=== PATIENT | female | born 1935 | race Caucasian/White ===

== ENCOUNTER → 2017-05-12 | Outpatient (CLI) | payer MEDICARE ==
[~2017-05-12] MED LIST: /PANT40TA PO; ASPI81TAEC PO; ATEN50TA2 PO; ATOR1TAB21 PO; CARA1TAB2 PO; FERR32TA PO; FOLI1TAB4 PO; FOLI1TAB86 PO; HALO0.5H PO; LISI-538 PO; MULTTAB4 PO; SENN1TAB2 PO; THIA100TA PO; TYLE325T5 PO; VITA-121 PO; VITA100T2 PO; VITA500T53 PO
== END ==
LOC: M CLY 15:13
PROVIDERS: ATTEND Family Medicine
DX: M25.511 Pain in right shoulder (principal); Z53.8 Procedure and treatment not carried out for other reasons

== ENCOUNTER 2017-05-14 12:42 | Inpatient (IN) | payer MEDICARE ==
[~2017-05-14] VITALS: Ht 152.4 cm; Wt 60.7 kg
[~2017-05-14 12:42] MED LIST changes: -ASPI81TAEC PO; -ATOR1TAB21 PO; -FERR32TA PO; -FOLI1TAB4 PO; -HALO0.5H PO; -LISI-538 PO; -SENN1TAB2 PO; -THIA100TA PO; -VITA-121 PO; -VITA500T53 PO
[2017-05-14] MEDS: NS 1,000 ML IV SCH (14:33)
[2017-05-14 14:44] LABS: BASO # 0.1 K/mm3 (0.0-0.2); BASO % 0.5 % (0.0-1.0); EOS # 0.1 K/mm3 (0.0-0.50); EOS % 0.6 % (0.0-3.0); LARGE UNSTAINED CELL # 0.1 K/mm3 (0.0-0.4); LARGE UNSTAINED CELL % 0.9 % (0.0-4.0); LYMPH # 1.3 K/mm3 (1.5-4.5); LYMPH % 10.5 % (24.0-44.0); MEAN CORPUSCULAR HEMOGLOBIN 29.5 pg (27.0-33.0); MEAN CORPUSCULAR HGB CONC 33.1 g/dl (32.0-36.5); MEAN CORPUSCULAR VOLUME 89.2 fl (80.0-96.0); MONO # 0.4 K/mm3 (0.0-0.8); MONO % 3.2 % (0.0-5.0); NEUTROPHILS # 10.4 K/mm3 (1.8-7.7); NEUTROPHILS % 84.2 % (36.0-66.0); PLATELET COUNT, AUTOMATED 345 k/mm3 (150-450); RED CELL DISTRIBUTION WIDTH 18.3 % (11.5-14.5); WHITE BLOOD COUNT 12.3 K/mm3 (4.0-10.0)
--- NOTE | 2017-05-14 14:52 | REP ---
CT cervical spine without contrast HISTORY: Trauma COMPARISON: None There is no acute fracture or subluxation. Disc bulges are present at the C2-3 and C3-4 levels. Disc bulges with associated osteophyte formation are present at the C4-5 and C5-6 levels. There is minimal narrowing of the spinal canal. Uncinate process and/or facet hypertrophy are present at the C2-3 through C7-T1 levels. These findings produce minimal to moderate narrowing of the neural foramina. The C3-4 through C5-6 intervertebral discs are decreased in height consistent with disc degeneration. IMPRESSION: 1. There is no acute fracture or subluxation. 2. There is cervical spondylosis at the C2-3 through C7-T1 levels. Signed by Sandeep Means MD 05/14/2017 01:37 P
--- NOTE | 2017-05-14 14:52 | REP ---
CT Head without contrast HISTORY: Trauma COMPARISON: MR 11/13/2003 Areas of decreased attenuation are present in the left basal ganglia. These represent old lacunar infarctions. Areas of decreased attenuation are present in the periventricular white matter. This represents small-vessel ischemic disease. Small areas of decreased attenuation are present in the inferior frontal lobes. This represents encephalomalacia. There is no intraparenchymal hemorrhage, acute infarct, mass or midline shift. The ventricular system and cortical sulci as well as subarachnoid space in the posterior fossa are dilated consistent with mild volume loss. There is no extra cerebral collection. There is no fracture. The visualized sinuses are clear. IMPRESSION: 1. Old left basal ganglia lacunar infarctions. 2. Small vessel ischemic disease. 3. Bilateral frontal lobe encephalomalacia. 4. Mild volume loss. 3. Signed by Sandeep Means MD 05/14/2017 01:30 P
--- NOTE | 2017-05-14 14:54 | REP ---
Clinical: Altered mental status . Comparison: None . Findings: The mediastinum and cardiac silhouette are stable and within normal limits for portable technique. The lung cristobal are clear without acute consolidation, effusion, or pneumothorax. Skeletal structures are intact. Impression: No acute cardiopulmonary process appreciated. Signed by German Mantilla MD 05/14/2017 02:35 P
[2017-05-14 14:59] LABS: ALBUMIN 3.4 GM/DL (3.2-5.2); ALBUMIN/GLOBULIN RATIO 0.92 (1.00-1.93); BILIRUBIN,DIRECT 0.2 MG/DL (0.0-0.2); CALCIUM LEVEL 8.8 MG/DL (8.8-10.2); CREATININE FOR GFR 1.35 MG/DL (0.55-1.02); GLOMERULAR FILTRATION RATE 40.3 (>39); POTASSIUM SERUM 4.4 MEQ/L (3.5-5.1); TOTAL PROTEIN 7.1 GM/DL (6.4-8.2)
[2017-05-14] MEDS ORDERED: NS 1,000 ML IV ONE (15:15)
--- NOTE | 2017-05-14 15:45 | REP ---
Clinical: Pyelonephritis Findings: Lung bases demonstrate chronic changes along with calcified granulomata. Visualized portions of the heart and pericardium grossly normal. Liver, spleen, pancreas, gallbladder, and bilateral adrenal glands are relatively normal for noncontrast evaluation. Hepatic and splenic calcifications consistent with prior granulomatous disease. The kidneys demonstrate chronic-appearing changes including 1.5 cm right renal hypodensity suggesting cyst. No significant acute perinephric stranding, hydroureteronephrosis, or obstructing ureteral calculi are appreciated. The enteric system is without obstruction or acute inflammatory process. Diffuse colonic and sigmoid diverticulosis noted without acute diverticulitis. Normal terminal ileum and appendix identified in the right lower quadrant. Pelvis demonstrates normal bladder and age-appropriate uterus/adnexa. No pelvic fluid or ascites. No free air. No adenopathy. No obvious mass lesion. Atherosclerotic changes to the aorta and vasculature noted without aneurysm. Musculoskeletal structures demonstrate age-related degenerative changes without focal osseous abnormality. Impression: 1. Urinary tract system is without obvious acute pathology. Incidental note is made of a 1.5 cm presumed right renal cyst which may be followed by ultrasound. 2. Diverticulosis without acute diverticulitis. 3. Evidence for prior granulomatous disease. 4. Chronic findings including atherosclerotic changes to the vasculature and degenerative changes the musculoskeletal structures. Signed by German Mantilla MD 05/14/2017 03:36 P
[2017-05-14] MEDS ORDERED: ATEN50TA2 PO (16:41)
[2017-05-14] MEDS ORDERED: LISI-538 PO (16:41)
[2017-05-14] MEDS ORDERED: VITA-121 PO (16:41)
--- NOTE | 2017-05-14 17:36 | REP ---
Clinical: Trauma. Technique: Internal rotation, external rotation, and Y view of the right shoulder. Findings: Evaluation is limited by osteopenia and moderate to early advanced osteoarthritic degenerative changes. Nondisplaced fracture involving the distal clavicle at the acromioclavicular joint is suspected and requires correlation. Glenohumeral joint appears intact. Impression: 1. Osteopenia and arthritic degenerative changes. 2. Nondisplaced fracture of the distal clavicle at the acromioclavicular joint suggested. Signed by German Mantilla MD 05/14/2017 05:28 P
[2017-05-14] MEDS ORDERED: cefTRIAXone SOD 2 GM in D5W MINI-BAG PLUS 50 ML IV ONE (20:30)
[2017-05-14] MEDS ORDERED: ACETAMINOPHEN TAB 650MG DOSE (2X325MG) PO PRN (21:30)
[2017-05-14] MEDS ORDERED: ONDANSETRON 4MG/2ML VIAL (J2405) IV PRN (21:30)
[2017-05-14 23:03] VITALS: BP 117/83
[2017-05-15] VITALS (9 sets, daily range): BP systolic 110–147; BP diastolic 58–77
[2017-05-15] MEDS: NS 1,000 ML IV SCH (00:02)
--- NOTE | 2017-05-15 07:34 | HPE ---
DATE OF ADMISSION: 05/14/2017 PRIMARY CARE PROVIDER: Dr. Lamar CHIEF COMPLAINT: Fall with right shoulder pain. HISTORY OF PRESENT ILLNESS: Patient is a poor historian. Patient was sent here by the patient's primary care provider with underlying medical history of only hypertension and polio, lives alone at home. As per patient, she had one fall about three days ago with right shoulder bruising and pain. She said it was mechanical. The patient has been a very poor historian, story often changes. The patient also stated that she has been on the hospital for many days already, which is not true, she was just seen in the emergency room today. Furthermore, the patient's history was very inconsistent. Patient does not remember a lot of the past medical history. Likely has a history of dementia. Patient denies any coughing, shortness of breath, or abdominal pain. Patient stated that she has a dog and her neighbor is taking care of her dog. Denies any sick contact or recent travel. Denies any nausea, vomiting or abdominal pain. Denies any urinary complaints. Otherwise, further history not possible. Patient was found to have leukocytosis, lactic acidosis with acute kidney injury with positive urinalysis, but denies any fevers or chills. ALLERGIES: No known drug allergies. PAST MEDICAL HISTORY: Hypertension. Polio. PAST SURGICAL HISTORY: Appendectomy. FAMILY HISTORY: Both parents . Sibling with Parkinson's. SOCIAL HISTORY: Patient reported quitting smoking when she was in school. Reported drinking a cup of wine daily. REVIEW OF SYSTEMS: Reported right shoulder pain and falling. All review of systems are negative. HOME MEDICATIONS: - atenolol 30 mg by mouth daily - lisinopril 20 mg by mouth daily - vitamin D PHYSICAL EXAMINATION: VITAL SIGNS: Temperature 97.2, pulse 88, respirations 18, blood pressure 117/83, pulse oximetry 97% on room air. GENERAL: Patient alert, comfortable, in no acute distress. HEENT: Normocephalic, atraumatic. PULMONARY: Bilaterally clear to auscultation. Right upper shoulder with pain range of motion as well as significant bruising and swelling. CARDIAC: Regular rate and rhythm. Normal S1 and S2. ABDOMEN: Soft, nontender. Positive bowel sounds. EXTREMITIES: Able to move all four extremities. No clubbing, cyanosis, or edema. NEUROLOGIC: Cranial nerves II through XII grossly intact. No focal deficit. Right upper extremity slightly limited, but still able to move due to shoulder pain. LABORATORIES: WBC 12.3, hemoglobin and hematocrit 11.3/34.1, platelets 345. Chemistries: Sodium 141, potassium 4.1, chloride 103, bicarb 27, BUN 90, creatinine 1.35, lactic acid 3.8 and 2.7. ASSESSMENT/PLAN: This is a 81-year-old female patient with underlying medical history of hypertension, polio, and likely also dementia that was not diagnosed by primary on medical record, who presented status post fall with right clavicular fracture and likely altered mental status. PROBLEMS: 1. Fall with clavicular fracture. Case discussed with Dr. Fernandez As per patient, this is mechanical, but the patient has been confused and also a poor historian. Will monitor the patient closely. Followup orthostatic vital signs. Case discussed with orthopedic doctor, Dr. Fernandez who recommended sling and followup in two weeks. Weightbearing as tolerated. Physical therapy, occupational therapy. Pain medication as prescribed. Holding blood pressure medications. 2. Altered mental status. Differential diagnosis includes encephalopathy secondary to infection versus worsening dementia versus stroke. Will MRI/MRA of the brain, MRI of the neck and echocardiogram. Start on baby aspirin and statin. Will monitor the patient closely. Neuro checks. Will followup RPR and vitamin D. Prescribe thiamine. Treatment for UTI, as mentioned patient on Rocephin. 3. Urinary tract infection. Patient placed on Rocephin. Followup cultures. Continue to monitor. 4. Acute kidney injury secondary to dehydration. IV fluids for hydration. Followup kidney function. Followup urine studies. 5. Lactic acidosis secondary to dehydration versus infection. IV fluids, antibiotics. Followup cultures. We will repeat lactic acid. 6. Hypertension. Holding blood pressure medication given the patient fell. Will continue to monitor. 7. Deep vein thrombosis (DVT) prophylaxis. Lovenox subcu. DISPOSITION/PLANNING: Patient and family services (PFS) has been consulted. Patient with dementia, lives at home alone. Situation might not be safe. Physical therapy, occupational therapy. Workup for altered mental status as mentioned above. Fall precautions.
[2017-05-15 07:53] LABS: ALBUMIN 2.6 GM/DL (3.2-5.2); ALBUMIN/GLOBULIN RATIO 0.84 (1.00-1.93); ALKALINE PHOSPHATASE 73 U/L (45-117); ALT/SGPT 20 U/L (12-78); ANION GAP 9 MEQ/L (8-16); AST/SGOT 26 U/L (15-37); BILIRUBIN,TOTAL 0.8 MG/DL (0.2-1.0); BLOOD UREA NITROGEN 54 MG/DL (7-18); CALCIUM LEVEL 7.6 MG/DL (8.8-10.2); CARBON DIOXIDE LEVEL 25 MEQ/L (21-32); CHLORIDE LEVEL 113 MEQ/L (98-107); CREATININE FOR GFR 0.75 MG/DL (0.55-1.02); GLOMERULAR FILTRATION RATE > 60.0 (>39); GLUCOSE, FASTING 109 MG/DL (83-110); MAGNESIUM LEVEL 2.2 MG/DL (1.8-2.4); POTASSIUM SERUM 4.2 MEQ/L (3.5-5.1); SODIUM LEVEL 147 MEQ/L (136-145); TOTAL PROTEIN 5.7 GM/DL (6.4-8.2)
[2017-05-15] MEDS: SENOKOT S TAB PO SCH ×2 (09:00→20:30)
[2017-05-15 09:13] LABS: MEAN CORPUSCULAR HEMOGLOBIN 29.7 pg (27.0-33.0); MEAN CORPUSCULAR HGB CONC 32.4 g/dl (32.0-36.5); MEAN CORPUSCULAR VOLUME 91.5 fl (80.0-96.0); RED CELL DISTRIBUTION WIDTH 18.9 % (11.5-14.5); WHITE BLOOD COUNT 6.7 K/mm3 (4.0-10.0)
--- NOTE | 2017-05-15 09:20 | REP ---
Acute renal insufficiency. Technique: Real time byers scale ultrasound examination using curved array transducer. Findings: The bilateral kidneys are normal in contour, size, echogenicity and reniform shape without hydronephrosis, nephrolithiasis, cystic or renal mass lesion. The bladder is normal in appearance and without wall thickening or mass. Right kidney measures 9.0 x 4.5 x 3.8 cm. Left kidney measures 10.1 x 4.9 x 4.7 cm. Bladder currently measuring 4.6 x 4.6 x 6.9 cm (75 ml). Impression: Normal renal ultrasound. Signed by German Mantilla MD 05/15/2017 09:12 A
[2017-05-15] MEDS: ASPIRIN 81 MG ENTERIC TAB PO SCH (09:45)
[2017-05-15] MEDS: THIAMINE 100 MG TAB PO SCH (09:45)
[2017-05-15] MEDS: ENOXAPARIN 30 MG/0.3 ML SYR (J1650) SC SCH (09:45)
--- NOTE | 2017-05-15 09:53 | ECGEPIP ---
Stationary ECG Study [facility] Test Date: 2017-05-15 Pat Name: YADIRA OHARA Department: Room: [place] [address] Gender: F [employer]visor [employer]: erma : 1935 Requested By: RADHA REY Order Number: [id number] Reading MD: Ruddy Woo Measurements Intervals [place] Rate: 90 P: 36 [place]: 174 QRS: -15 QRSD: 80 T: 30 QT: 386 QTc: 472 Interpretive Statements SINUS RHYTHM Somewhat prominent R waves in V2 and V3. Rule out prior PWMI versus RVH. Subtle diffuse ST scooping. No prior tracing for comparison. Clinical correlation advised Electronically Signed On 05-15-2017 9:53:21 EDT by Ruddy Woo
--- NOTE | 2017-05-15 11:19 | IPNPDOC ---
Subjective Date Seen The patient was seen on 05/15/17. Subjective Chief Complaint/HPI The patient is a 81-year-old female admitted with a reason for visit of Altered Mental Status. Events since last encounter Patient awake and alert and knows where she is . she knows that she fell down few days ago and broke her clavicle but does not know why she is in the hospital , gives confusing story about where she is going to live after discharge from the hospital , refused MRi today. Does seem to have poor short term memory and cannot remember if she had breakfast or not or what she told the nurses a little while earlier. Patient says that she has been living with her sister in [place] for the past week . Objective Physical Examination General Exam: Positive: Alert, Cooperative, No Acute Distress Eye Exam: Positive: PERRLA, Conjunctiva & lids normal, EOMI, Negative: Sclera icteric ENT Exam: Positive: Atraumatic, Mucous membr. moist/pink, Pharynx Normal Neck Exam: Positive: Supple, Negative: JVD, thyromegaly Chest Exam: Positive: Clear to auscultation, Normal air movement Heart Exam: Positive: Rate Normal, Regular Rhythm, Normal S1, Normal S2, Negative: Murmurs, Rubs Telemetry: Positive: No significant arrhythmia Abdomen Exam: Positive: Normal bowel sounds, Soft, Negative: Tenderness, Hepatospenomegaly Extremity Exam: Positive: Normal pulses, Negative: Clubbing, Cyanosis, Edema Assessment /Plan Problems (1) UTI (urinary tract infection) Status: Acute Problem Text: will continue with ceftriaxone . urine culture pending. (2) Acute metabolic encephalopathy Status: Acute Problem Text: due to uti . improving now though she has underlying dementia with poor short term memory so her history is not very reliable. 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 Has lacuner infarcts and encephalomalacia in ct head. patient lives alone in an apartment in [facility] . May not be safe to go on living alone at this point pfs has been consulted to help with discharge planning. (4) Dehydration Status: Acute Problem Text: with mild hypernatremia will continue with gentle hydration (5) Hypertension Status: Chronic (6) Fall with injury Status: Acute Problem Text: with clavicle fracture on the right non displaced. (7) History of poliomyelitis Status: Chronic (8) Lacunar infarction Status: Chronic (9) Encephalomalacia Status: Chronic Problem Text: as seen in ct head has bilateral frontal encephalomalaia. Plan/VTE VTE Prophylaxis Ordered?: Yes VS, I&O, 24H, Fishbone Vital Signs/I&O Vital Signs Date Time Temp Pulse Resp B/P (MAP) Pulse Ox O2 Delivery O2 Flow Rate FiO2 05/15/17 08:00 96.3 87 18 147/76 (99) 96 Room Air I&O- Last 24 Hours up to 6 AM 05/15/17 06:00 Intake Total 1760 ml Output Total 400 ml Balance 1360 ml Laboratory Data 24H LABS Laboratory Tests 2 05/14/17 13:57: 25-Hydroxy Vitamin D Total 36.5 05/14/17 14:16: White Blood Count 12.3H, Red Blood Count 3.83L, Hemoglobin 11.3L, Hematocrit 34.1L, Mean Corpuscular Volume 89.2, Mean Corpuscular Hemoglobin 29.5, Mean Corpuscular Hemoglobin Concent 33.1, Red Cell Distribution Width 18.3H, Platelet Count 345, Neutrophils (%) (Auto) 84.2H, Lymphocytes (%) (Auto) 10.5L, Monocytes (%) (Auto) 3.2, Eosinophils (%) (Auto) 0.6, Basophils (%) (Auto) 0.5, Neutrophils # (Auto) 10.4H, Lymphocytes # (Auto) 1.3L, Monocytes # (Auto) 0.4, Eosinophils # (Auto) 0.1, Basophils # (Auto) 0.1, Large Unclassified Cells % 0.9 , Large Unclassified Cells # 0.1, Anion Gap 11, Glomerular Filtration Rate 40.3 , Lactic Acid Level 3.8*H, Calcium Level 8.8, Aspartate Amino Transf (AST/SGOT) 21, Alanine Aminotransferase (ALT/SGPT) 24, Alkaline Phosphatase 97, Total Bilirubin 1.0, Direct Bilirubin 0.2, Ammonia 22, Total Creatine Kinase 37, Creatine Kinase MB 1.1, Creatine Kinase MB Relative Index 2.97, Troponin I 0.03 , Total Protein 7.1, Albumin 3.4, Albumin/Globulin Ratio 0.92L, Thyroid Stimulating Hormone (TSH) 1.770 05/14/17 14:38: Urine Appearance CLOUDYH, Urine Color YELLOW, Urine pH 5.0, Urine Specific [place] 1.018, Urine Protein NEGATIVE, Urine Glucose (UA) NEGATIVE, Urine Ketones NEGATIVE, Urine Urobilinogen 0.2, Urine Bilirubin NEGATIVE, Urine Leukocyte Esterase 3+H, Urine Blood 1+H, Urine Nitrite NEGATIVE, Urine WBC (Auto ) 43H, Urine RBC (Auto) 3, Urine Hyaline Casts (Auto) 20, Urine Bacteria (Auto) 2+H, Urine Squamous Epithelial Cells 3, Urine Mucus (Auto) SMALL, Urine Sperm ( Auto) 05/14/17 21:41: Lactic Acid Level 2.7*H, C-Reactive Protein, Quantitative 0.66H 05/15/17 07:17: Anion Gap 9, Glomerular Filtration Rate > 60.0, Blood Urea Nitrogen 54H, Creatinine 0.75, Sodium Level 147H, Potassium Level 4.2, Chloride Level 113H, Carbon Dioxide Level 25, Calcium Level 7.6L, Aspartate Amino Transf (AST/SGOT) 26, Alanine Aminotransferase (ALT/SGPT) 20, Alkaline Phosphatase 73, Total Bilirubin 0.8, Total Protein 5.7L, Albumin 2.6#L, Magnesium Level 2.2, C- Reactive Protein, Quantitative 0.46H, Albumin/Globulin Ratio 0.84L CBC/BMP Laboratory Tests 05/14/17 14:16 Red Blood Count 3.83 L, Mean Corpuscular Volume 89.2, Mean Corpuscular Hemoglobin 29.5, Mean Corpuscular Hemoglobin Concent 33.1, Red Cell Distribution Width 18.3 H, Neutrophils (%) (Auto) 84.2 H, Lymphocytes (%) (Auto ) 10.5 L, Monocytes (%) (Auto) 3.2, Eosinophils (%) (Auto) 0.6, Basophils (%) ( Auto) 0.5, Neutrophils # (Auto) 10.4 H, Lymphocytes # (Auto) 1.3 L, Monocytes # (Auto) 0.4, Eosinophils # (Auto) 0.1, Basophils # (Auto) 0.1 05/15/17 07:17 Calcium Level 7.6 L, Aspartate Amino Transf (AST/SGOT) 26, Alanine Aminotransferase (ALT/SGPT) 20, Alkaline Phosphatase 73, Total Bilirubin 0.8, Total Protein 5.7 L, Albumin 2.6 #L 05/15/17 08:57 Red Blood Count 2.76 L, Mean Corpuscular Volume 91.5, Mean Corpuscular Hemoglobin 29.7, Mean Corpuscular Hemoglobin Concent 32.4, Red Cell Distribution Width 18.9 H Microbiology Microbiology 05/14/17 Blood Culture, Received Pending 05/14/17 Blood Culture, Received Pending 05/14/17 Urine Culture - Final, Complete DALIA REINOSO MD May 15, 2017 11:19
--- NOTE | 2017-05-15 19:13 | ECGEPIP ---
Stationary ECG Study [facility] - ED Test Date: 2017-05-14 Pat Name: YADIRA OHARA Department: Room: - Gender: F Rcis: WHITNEY : 1935 Requested By: Geo Enriquez Order Number: [id number] Reading MD: Roshni Hazel Measurements Intervals [place] Rate: 94 P: 22 DC: 156 QRS: -10 QRSD: 87 T: 61 QT: 366 QTc: 460 Interpretive Statements SINUS RHYTHM WITH FREQUENT VENTRICULAR PREMATURE COMPLEXES NONSPECIFIC T-WAVE ABNORMALITY ABNORMAL RHYTHM ECG LAD BASELINE ARTIFACT AND WANDERING MAY AFFECT READING INFERIOR WALL MYOCARDIAL INFARCTION, AGE UNDETERMINED NO PRIOR ECG FOR COMPARISON Electronically Signed On 05-15-2017 19:13:27 EDT by Roshni Hazel
[2017-05-15] MEDS: ATORVASTATIN 20 MG TAB PO SCH ×2 (20:30)
[2017-05-16] MEDS: ASPIRIN 81 MG ENTERIC TAB PO SCH (09:02)
[2017-05-16] MEDS: SENOKOT S TAB PO SCH ×2 (09:02→20:51)
[2017-05-16] MEDS: THIAMINE 100 MG TAB PO SCH (09:02)
[2017-05-16] MEDS: ENOXAPARIN 30 MG/0.3 ML SYR (J1650) SC SCH (09:02)
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
[2017-05-16] MEDS: HALOPERIDOL 2 MG TAB PO SCH ×2 (11:56→20:51)
[2017-05-16 14:00] VITALS: BP 116/63
[2017-05-16 14:05] VITALS: BP 130/57
[2017-05-16 16:10] VITALS: BP 112/60
[2017-05-16] MEDS: ATORVASTATIN 20 MG TAB PO SCH (20:51)
[2017-05-16 22:00] VITALS: BP 113/57
[2017-05-17] VITALS (7 sets, daily range): BP systolic 96–136; BP diastolic 58–66
[2017-05-17 06:42] LABS: MEAN CORPUSCULAR HEMOGLOBIN 29.3 pg (27.0-33.0); MEAN CORPUSCULAR HGB CONC 31.7 g/dl (32.0-36.5); MEAN CORPUSCULAR VOLUME 92.7 fl (80.0-96.0); RED CELL DISTRIBUTION WIDTH 20.6 % (11.5-14.5); WHITE BLOOD COUNT 6.2 K/mm3 (4.0-10.0)
[2017-05-17 06:54] LABS: ALBUMIN 2.2 GM/DL (3.2-5.2); ALBUMIN/GLOBULIN RATIO 0.85 (1.00-1.93); ALKALINE PHOSPHATASE 51 U/L (45-117); ALT/SGPT 18 U/L (12-78); ANION GAP 8 MEQ/L (8-16); AST/SGOT 21 U/L (15-37); BILIRUBIN,TOTAL 0.4 MG/DL (0.2-1.0); BLOOD UREA NITROGEN 44 MG/DL (7-18); CALCIUM LEVEL 7.7 MG/DL (8.8-10.2); CARBON DIOXIDE LEVEL 26 MEQ/L (21-32); CHLORIDE LEVEL 112 MEQ/L (98-107); CREATININE FOR GFR 0.72 MG/DL (0.55-1.02); GLOMERULAR FILTRATION RATE > 60.0 (>39); GLUCOSE, FASTING 96 MG/DL (83-110); SODIUM LEVEL 146 MEQ/L (136-145); TOTAL PROTEIN 4.8 GM/DL (6.4-8.2)
[2017-05-17 07:55] LABS: BASO # 0.1 K/mm3 (0.0-0.2); BASO % 1.1 % (0.0-1.0); EOS # 0.1 K/mm3 (0.0-0.50); EOS % 1.7 % (0.0-3.0); LARGE UNSTAINED CELL # 0.1 K/mm3 (0.0-0.4); LARGE UNSTAINED CELL % 1.7 % (0.0-4.0); LYMPH % 29.1 % (24.0-44.0); MEAN CORPUSCULAR HEMOGLOBIN 29.2 pg (27.0-33.0); MEAN CORPUSCULAR HGB CONC 31.5 g/dl (32.0-36.5); MEAN CORPUSCULAR VOLUME 92.8 fl (80.0-96.0); MONO # 0.3 K/mm3 (0.0-0.8); MONO % 4.7 % (0.0-5.0); NEUTROPHILS % 61.7 % (36.0-66.0); PLATELET COUNT, AUTOMATED 249 k/mm3 (150-450); RED CELL DISTRIBUTION WIDTH 20.9 % (11.5-14.5); WHITE BLOOD COUNT 6.6 K/mm3 (4.0-10.0)
[2017-05-17 09:00] LABS: RETIC HEMOGLOBIN CONTENT CHr 36.9 PG (24-36); RETICULOCYTE ABSOLUTE ADVIA212 106 x10(9)/L (17-77)
[2017-05-17] MEDS: HALOPERIDOL 2 MG TAB PO SCH ×2 (09:00→20:41)
[2017-05-17] MEDS: ENOXAPARIN 30 MG/0.3 ML SYR (J1650) SC SCH (09:00)
[2017-05-17] MEDS: ASPIRIN 81 MG ENTERIC TAB PO SCH (09:00)
[2017-05-17] MEDS: THIAMINE 100 MG TAB PO SCH (09:00)
[2017-05-17] MEDS: SENOKOT S TAB PO SCH ×2 (09:00→20:41)
--- NOTE | 2017-05-17 09:02 | IPNPDOC ---
Date Seen The patient was seen on 05/17/17. Progress Note SUBJECTIVE: Patient is a 81-year-old female with altered mental status. Patient is profoundly anemic this morning with redraw confirming this mornings result. Patient denies acute bleeding. She denies weakness, lightheadedness, or dizziness. HCP is daughter, Soraya Triplett . However, attempts at contacting daughter thus far have been unsuccessful. Calls go straight to voicemail. Contact information left on voicemail for daughter to call hospital. Called sister, Jovi Berry, who provided verbal consent. OBJECTIVE PHYSICAL EXAMINATION: VITAL SIGNS: Please see below. GENERAL: Alert female sitting bedside with her feet hanging over the edge of the bed about to eat breakfast HEENT: Atraumatic, normocephalic, PERRL, EOMI, oral mucosa appears pink and moist, nasal septum appears midline, nares are patent CARDIOVASCULAR: Tachycardic, normal S1 and S2, no murmur, rub, click RESPIRATORY: Clear to auscultation bilaterally, adequate inspiratory and expiratory airway excursion, no crackles, rhonchi, wheeze ABDOMINAL: Soft, non-tender, non-distended, diminished bowel sounds EXTREMITIES: Without edema, peripheral pulses appreciated bilaterally, equal, symmetrical, +2/4 NEUROLOGICAL: CN II-XII grossly intact PSYCHOLOGICAL: Dementia LABORATORY DATA: Please see below. MICROBIOLOGY: Please see below. DVT prophylaxis ordered?: Lovenox 40mg SC daily ASSESSMENT AND PLAN: This is a 81-year-old female with altered mental status. PROBLEMS: 1. Anemia: Profound. No signs of acute bleeding. Type and screen. Three units of PRBC ordered. Iron studies, reticulocyte count, B12, folate, and stool for occult blood ordered. Chest x-ray. Verbal consent obtained from sister, Jovi Berry [phone]. 2. Tachycardia: Likely secondary to profound anemia without definite etiology at this time. Updated VS indicate hypotension. Patient would benefit from being on a monitored unit. 3. Non-displaced right clavicle fracture: Ecchymosis noted on superior aspect of shoulder. Tylenol as needed for pain. 4. Hypertension: Currently hypotensive secondary to profound anemia. Patient would benefit from being on monitored unit. 5. 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 Lacunar infarcts and encephalomalacia on head CT. PFS consult to assist with discharge planning. 6. Acute delirium: Patient has underlying dementia. Haldol 2mg by mouth twice a day as needed. 7. Lacunar infarction: Stable. 8. Encephalomalacia: Stable. 9. History of poliomyelitis: Stable. DISPOSITION: Transfer to monitored unit. Waiting to obtain consent for blood transfusion. VS, I&O, 24H, Fishbone Vital Signs/I&O Vital Signs Date Time Temp Pulse Resp B/P (MAP) Pulse Ox O2 Delivery O2 Flow Rate FiO2 05/17/17 06:00 98.0 120 17 110/58 (75) 99 Room Air I&O- Last 24 Hours up to 6 AM 05/17/17 06:00 Intake Total 380 ml Output Total 900 ml Balance -520 ml Laboratory Data 24H LABS Laboratory Tests 2 05/17/17 05:47: Anion Gap 8, Glomerular Filtration Rate > 60.0, Blood Urea Nitrogen 44H, Creatinine 0.72, Sodium Level 146H, Potassium Level 4.0, Chloride Level 112H, Carbon Dioxide Level 26, Calcium Level 7.7L, Aspartate Amino Transf (AST/SGOT) 21, Alanine Aminotransferase (ALT/SGPT) 18, Alkaline Phosphatase 51, Total Bilirubin 0.4, Total Protein 4.8L, Albumin 2.2L, Magnesium Level 2.0, Albumin/ Globulin Ratio 0.85L 05/17/17 07:37: White Blood Count 6.6, Red Blood Count 1.65L, Hemoglobin 4.8*L, Hematocrit 15.4L , Mean Corpuscular Volume 92.8, Mean Corpuscular Hemoglobin 29.2, Mean Corpuscular Hemoglobin Concent 31.5L, Red Cell Distribution Width 20.9H, Platelet Count 249, Neutrophils (%) (Auto) 61.7, Lymphocytes (%) (Auto) 29.1, Monocytes (%) (Auto) 4.7, Eosinophils (%) (Auto) 1.7, Basophils (%) (Auto) 1.1H , Neutrophils # (Auto) 4.0, Lymphocytes # (Auto) 2.0, Monocytes # (Auto) 0.3, Eosinophils # (Auto) 0.1, Basophils # (Auto) 0.1, Large Unclassified Cells % 1.7 , Large Unclassified Cells # 0.1 CBC/BMP Laboratory Tests 05/17/17 05:47 Red Blood Count 1.67 L, Mean Corpuscular Volume 92.7, Mean Corpuscular Hemoglobin 29.3, Mean Corpuscular Hemoglobin Concent 31.7 L, Red Cell Distribution Width 20.6 H, Calcium Level 7.7 L, Aspartate Amino Transf (AST/SGOT ) 21, Alanine Aminotransferase (ALT/SGPT) 18, Alkaline Phosphatase 51, Total Bilirubin 0.4, Total Protein 4.8 L, Albumin 2.2 L 05/17/17 07:37 Red Blood Count 1.65 L, Mean Corpuscular Volume 92.8, Mean Corpuscular Hemoglobin 29.2, Mean Corpuscular Hemoglobin Concent 31.5 L, Red Cell Distribution Width 20.9 H, Neutrophils (%) (Auto) 61.7, Lymphocytes (%) (Auto) 29.1, Monocytes (%) (Auto) 4.7, Eosinophils (%) (Auto) 1.7, Basophils (%) (Auto ) 1.1 H, Neutrophils # (Auto) 4.0, Lymphocytes # (Auto) 2.0, Monocytes # (Auto) 0.3, Eosinophils # (Auto) 0.1, Basophils # (Auto) 0.1 Microbiology Microbiology 05/14/17 Blood Culture - Preliminary, Resulted No Growth after 48 hours. All Specime... 05/14/17 Blood Culture - Preliminary, Resulted 05/14/17 Urine Culture - Final, Complete JOVI ROY May 17, 2017 09:02
[2017-05-17 09:03] LABS: REASON FOR REVIEW COMPREHENSIVE REVIEW
[2017-05-17 09:11] LABS: FERRITIN 22 NG/ML (8-252); PERCENT SATURATION 12.7 % (13.2-45.0); TOTAL IRON BINDING CAPACITY 314 UG/DL (250-450)
--- NOTE | 2017-05-17 09:57 | REP ---
Clinical: Chest pain . Comparison: 05/14/2017 . Findings: The mediastinum and cardiac silhouette are stable and within normal limits for portable technique. The lung cristobal are clear without acute consolidation, effusion, or pneumothorax. Skeletal structures are intact. Impression: No acute cardiopulmonary process appreciated. Signed by German Mantilla MD 05/17/2017 09:48 A
[2017-05-17 10:20] LABS: FOLATE 6.6 NG/ML (>5.4)
[2017-05-17] MEDS: ATORVASTATIN 20 MG TAB PO SCH (20:41)
[2017-05-18] VITALS (11 sets, daily range): BP systolic 102–145; BP diastolic 58–80
[2017-05-18 05:23] LABS: MEAN CORPUSCULAR HEMOGLOBIN 30.1 pg (27.0-33.0); MEAN CORPUSCULAR HGB CONC 33.9 g/dl (32.0-36.5); MEAN CORPUSCULAR VOLUME 88.7 fl (80.0-96.0); RED CELL DISTRIBUTION WIDTH 18.8 % (11.5-14.5); WHITE BLOOD COUNT 7.1 K/mm3 (4.0-10.0)
[2017-05-18 05:41] LABS: ALBUMIN 2.2 GM/DL (3.2-5.2); ALBUMIN/GLOBULIN RATIO 0.81 (1.00-1.93); ALKALINE PHOSPHATASE 56 U/L (45-117); ALT/SGPT 20 U/L (12-78); ANION GAP 9 MEQ/L (8-16); AST/SGOT 27 U/L (15-37); BLOOD UREA NITROGEN 24 MG/DL (7-18); CALCIUM LEVEL 7.4 MG/DL (8.8-10.2); CARBON DIOXIDE LEVEL 25 MEQ/L (21-32); CHLORIDE LEVEL 109 MEQ/L (98-107); CREATININE FOR GFR 0.58 MG/DL (0.55-1.02); GLOMERULAR FILTRATION RATE > 60.0 (>39); GLUCOSE, FASTING 94 MG/DL (83-110); MAGNESIUM LEVEL 2.1 MG/DL (1.8-2.4); POTASSIUM SERUM 3.6 MEQ/L (3.5-5.1); SODIUM LEVEL 143 MEQ/L (136-145); TOTAL PROTEIN 4.9 GM/DL (6.4-8.2)
[2017-05-18] MEDS: ASPIRIN 81 MG ENTERIC TAB PO SCH (08:33)
[2017-05-18] MEDS: HALOPERIDOL 2 MG TAB PO SCH ×2 (08:33→20:07)
[2017-05-18] MEDS: SENOKOT S TAB PO SCH ×2 (08:34→20:07)
[2017-05-18] MEDS: CYANOCOBALAMIN 1,000 MCG/ML VIAL (J3420) IM SCH (08:34)
[2017-05-18] MEDS: THIAMINE 100 MG TAB PO SCH (08:34)
[2017-05-18] MEDS: CYANOCOBALAMIN 500 MCG TAB PO SCH (08:34)
[2017-05-18] MEDS: ENOXAPARIN 30 MG/0.3 ML SYR (J1650) SC SCH (08:35)
--- NOTE | 2017-05-18 10:55 | IPNPDOC ---
Subjective Date Seen The patient was seen on 05/18/17. Subjective Chief Complaint/HPI The patient is a 81-year-old female admitted with a reason for visit of Altered Mental Status. Events since last encounter No complaints this morning wants to go home , does not seem to understand the severity of her medical issues. No signs of bleeding , no fever or chills, no chest pain or sob , denies any dysuria or frequency of urination . Spoke with patient's daughter from [place] says patient has recently moved into the new apartment at [facility] and she cannot remember the address. also she thiks she forgets to take her meals ans medications says she was fine before she Fell down after that she has been very confused. She is going to come in june to take the pateint to [place] Objective Physical Examination General Exam: Positive: Alert, Cooperative, No Acute Distress Eye Exam: Positive: PERRLA, Conjunctiva & lids normal, EOMI, Negative: Sclera icteric ENT Exam: Positive: Atraumatic, Mucous membr. moist/pink, Pharynx Normal Neck Exam: Positive: Supple, Negative: JVD, thyromegaly Chest Exam: Positive: Clear to auscultation, Normal air movement Heart Exam: Positive: Rate Normal, Regular Rhythm, Normal S1, Normal S2, Negative: Murmurs, Rubs Telemetry: Positive: No significant arrhythmia Abdomen Exam: Positive: Normal bowel sounds, Soft, Negative: Tenderness, Hepatospenomegaly Extremity Exam: Positive: Normal pulses, Negative: Clubbing, Cyanosis, Edema Assessment /Plan Problems (1) Anemia Status: Acute Problem Text: profound anemia with tachycardia and hypotension No signs of bleeding , no signs of hemolysis. Patient probably has chronic anemia the initial high value was probably due to underlying dehydration Has severe V b 12 deficiency started on v b12 im . also has mild iron deficiency will start on po iron also. received 3 units of prbc (2) Acute delirium Status: Acute Problem Text: possibly hospitalization change of place , poor sleep on the back ground of dementia. on haldol 2 mg po bid (3) UTI (urinary tract infection) Status: Resolved Problem Text: asymptomatic bacteruria final urine culture negative and patient did not have any urinary symptoms so antibiotic was discontinued (4) Acute metabolic encephalopathy Status: Acute Problem Text: possibly due to severe anemia though she has underlying dementia with poor short term memory so her history is not very reliable. (5) Dementia Status: Chronic Problem Text: Probably has multiinfarct and age related dementia. Has lacuner infarcts and encephalomalacia in ct head. patient lives alone in an apartment in [facility] . May not be safe to go on living alone at this point pfs has been consulted to help with discharge planning. (6) Dehydration Status: Resolved (7) Hypertension Status: Chronic (8) Fall with injury Status: Acute Problem Text: with clavicle fracture on the right non displaced. 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 Plan/VTE VTE Prophylaxis Ordered?: Yes VS, I&O, 24H, Fishbone Vital Signs/I&O Vital Signs Date Time Temp Pulse Resp B/P (MAP) Pulse Ox O2 Delivery O2 Flow Rate FiO2 05/18/17 08:45 98.9 89 18 122/70 (87) 98 Room Air I&O- Last 24 Hours up to 6 AM 05/18/17 05:59 Intake Total 840 ml Output Total 1251 ml Balance -411 ml Laboratory Data 24H LABS Laboratory Tests 2 05/18/17 05:01: Anion Gap 9, Glomerular Filtration Rate > 60.0, Blood Urea Nitrogen 24H, Creatinine 0.58, Sodium Level 143, Potassium Level 3.6, Chloride Level 109H, Carbon Dioxide Level 25, Calcium Level 7.4L, Aspartate Amino Transf (AST/SGOT) 27, Alanine Aminotransferase (ALT/SGPT) 20, Alkaline Phosphatase 56, Total Bilirubin 1.0#, Total Protein 4.9L, Albumin 2.2L, Magnesium Level 2.1, Albumin/ Globulin Ratio 0.81L CBC/BMP Laboratory Tests 05/17/17 16:57 05/18/17 05:01 Calcium Level 7.4 L, Aspartate Amino Transf (AST/SGOT) 27, Alanine Aminotransferase (ALT/SGPT) 20, Alkaline Phosphatase 56, Total Bilirubin 1.0 #, Total Protein 4.9 L, Albumin 2.2 L 05/18/17 05:02 Red Blood Count 2.59 L, Mean Corpuscular Volume 88.7, Mean Corpuscular Hemoglobin 30.1, Mean Corpuscular Hemoglobin Concent 33.9, Red Cell Distribution Width 18.8 H Microbiology Microbiology 05/14/17 Blood Culture - Final, Complete 05/14/17 Blood Culture - Final, Complete Ld Nathan 05/14/17 Urine Culture - Final, Complete DALIA REINOSO MD May 18, 2017 10:55
[2017-05-18] MEDS: FOLIC ACID 1 MG TAB PO SCH (14:33)
[2017-05-18] MEDS: ATORVASTATIN 20 MG TAB PO SCH (20:07)
[2017-05-19] VITALS: BP 113/61
[2017-05-19 02:05] VITALS: BP 130/67
[2017-05-19 07:31] LABS: MEAN CORPUSCULAR HEMOGLOBIN 31.2 pg (27.0-33.0); MEAN CORPUSCULAR HGB CONC 34.6 g/dl (32.0-36.5); MEAN CORPUSCULAR VOLUME 90.2 fl (80.0-96.0); RED CELL DISTRIBUTION WIDTH 17.9 % (11.5-14.5); WHITE BLOOD COUNT 6.5 K/mm3 (4.0-10.0)
[2017-05-19 07:56] LABS: ALBUMIN 2.3 GM/DL (3.2-5.2); ALBUMIN/GLOBULIN RATIO 0.82 (1.00-1.93); ALKALINE PHOSPHATASE 67 U/L (45-117); ALT/SGPT 31 U/L (12-78); ANION GAP 8 MEQ/L (8-16); AST/SGOT 47 U/L (15-37); BILIRUBIN,TOTAL 1.1 MG/DL (0.2-1.0); BLOOD UREA NITROGEN 12 MG/DL (7-18); CALCIUM LEVEL 7.7 MG/DL (8.8-10.2); CARBON DIOXIDE LEVEL 28 MEQ/L (21-32); CHLORIDE LEVEL 109 MEQ/L (98-107); CREATININE FOR GFR 0.58 MG/DL (0.55-1.02); GLOMERULAR FILTRATION RATE > 60.0 (>39); GLUCOSE, FASTING 89 MG/DL (83-110); MAGNESIUM LEVEL 2.1 MG/DL (1.8-2.4); POTASSIUM SERUM 3.5 MEQ/L (3.5-5.1); SODIUM LEVEL 145 MEQ/L (136-145); TOTAL PROTEIN 5.1 GM/DL (6.4-8.2)
[2017-05-19] MEDS: HALOPERIDOL 2 MG TAB PO SCH ×2 (09:21→21:19)
[2017-05-19] MEDS: SENOKOT S TAB PO SCH ×2 (09:22→21:19)
[2017-05-19] MEDS: THIAMINE 100 MG TAB PO SCH (09:22)
[2017-05-19] MEDS: FOLIC ACID 1 MG TAB PO SCH (09:22)
[2017-05-19] MEDS: ASPIRIN 81 MG ENTERIC TAB PO SCH (09:22)
[2017-05-19] MEDS: ENOXAPARIN 30 MG/0.3 ML SYR (J1650) SC SCH (09:22)
[2017-05-19] MEDS: CYANOCOBALAMIN 1,000 MCG/ML VIAL (J3420) IM SCH (09:22)
[2017-05-19] MEDS: CYANOCOBALAMIN 500 MCG TAB PO SCH (09:22)
--- NOTE | 2017-05-19 11:47 | IPNPDOC ---
Subjective Date Seen The patient was seen on 05/19/17. Subjective Chief Complaint/HPI The patient is a 81-year-old female admitted with a reason for visit of Altered Mental Status. Events since last encounter Had a good night , slept well as per sitter , gets intermittently confused and agitated and aggressive. No fever or chills, no chest pain or sob , no cough or phlegm , no nausea or vomiting or diarrhea. Objective Physical Examination General Exam: Positive: Alert, Cooperative, No Acute Distress Eye Exam: Positive: PERRLA, Conjunctiva & lids normal, EOMI, Negative: Sclera icteric ENT Exam: Positive: Atraumatic, Mucous membr. moist/pink, Pharynx Normal Neck Exam: Positive: Supple, Negative: JVD, thyromegaly Chest Exam: Positive: Clear to auscultation, Normal air movement Heart Exam: Positive: Rate Normal, Regular Rhythm, Normal S1, Normal S2, Negative: Murmurs, Rubs Abdomen Exam: Positive: Normal bowel sounds, Soft, Negative: Tenderness, Hepatospenomegaly Extremity Exam: Positive: Normal pulses, Negative: Clubbing, Cyanosis, Edema Assessment /Plan Problems (1) Anemia Status: Acute Problem Text: profound anemia with tachycardia and hypotension No signs of bleeding , no signs of hemolysis. Patient probably has chronic anemia the initial high value was probably due to underlying dehydration Has severe Vit b 12 deficiency started on v b12 im . also has mild iron deficiency will start on po iron also. received 3 units of prbc (2) Acute delirium Status: Acute Problem Text: possibly hospitalization change of place , poor sleep on the back ground of dementia. on haldol 2 mg po bid (3) Acute metabolic encephalopathy Status: Acute Response to Treatment: Improving Problem Text: possibly due to severe anemia though she has underlying dementia with poor short term memory so her history is not very reliable. (4) Dementia Status: Chronic Problem Text: Probably has multiinfarct and age related dementia. Has lacuner infarcts and encephalomalacia in ct head. patient lives alone in an apartment in [facility] . May not be safe to go on living alone at this point pfs has been consulted to help with discharge planning. (5) Dehydration Status: Resolved (6) Hypertension Status: Chronic (7) Fall with injury Status: Acute Problem Text: with clavicle fracture on the right non displaced. 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 Plan/VTE VTE Prophylaxis Ordered?: Yes VS, I&O, 24H, Fishbone Vital Signs/I&O Vital Signs Date Time Temp Pulse Resp B/P (MAP) Pulse Ox O2 Delivery O2 Flow Rate FiO2 05/19/17 02:06 Room Air 05/19/17 02:05 98.0 86 17 130/67 (88) 93 I&O- Last 24 Hours up to 6 AM 05/19/17 06:00 Intake Total 1500 ml Output Total 500 ml Balance 1000 ml Laboratory Data 24H LABS Laboratory Tests 2 05/19/17 07:13: Anion Gap 8, Glomerular Filtration Rate > 60.0, Blood Urea Nitrogen 12, Creatinine 0.58, Sodium Level 145, Potassium Level 3.5, Chloride Level 109H, Carbon Dioxide Level 28, Calcium Level 7.7L, Aspartate Amino Transf (AST/SGOT) 47H, Alanine Aminotransferase (ALT/SGPT) 31, Alkaline Phosphatase 67, Total Bilirubin 1.1H, Total Protein 5.1L, Albumin 2.3L, Magnesium Level 2.1, Albumin/ Globulin Ratio 0.82L CBC/BMP Laboratory Tests 05/19/17 07:13 Red Blood Count 3.06 L, Mean Corpuscular Volume 90.2, Mean Corpuscular Hemoglobin 31.2, Mean Corpuscular Hemoglobin Concent 34.6, Red Cell Distribution Width 17.9 H, Calcium Level 7.7 L, Aspartate Amino Transf (AST/SGOT ) 47 H, Alanine Aminotransferase (ALT/SGPT) 31, Alkaline Phosphatase 67, Total Bilirubin 1.1 H, Total Protein 5.1 L, Albumin 2.3 L Microbiology Microbiology 05/14/17 Blood Culture - Final, Complete 05/14/17 Blood Culture - Final, Complete Micrococcus Lylae 05/14/17 Urine Culture - Final, Complete DALIA REINOSO MD May 19, 2017 11:47
[2017-05-19] MEDS: FERROUS GLUCONATE 324 MG TAB PO SCH ×2 (12:25→21:45)
[2017-05-19 14:00] VITALS: BP 130/69
[2017-05-19 20:30] VITALS: BP 112/58
[2017-05-19] MEDS: ATORVASTATIN 20 MG TAB PO SCH (21:19)
[2017-05-20 05:10] VITALS: BP 114/70
[2017-05-20 06:42] LABS: MEAN CORPUSCULAR HEMOGLOBIN 30.7 pg (27.0-33.0); MEAN CORPUSCULAR HGB CONC 33.1 g/dl (32.0-36.5); MEAN CORPUSCULAR VOLUME 92.8 fl (80.0-96.0); RED CELL DISTRIBUTION WIDTH 18.7 % (11.5-14.5); WHITE BLOOD COUNT 6.8 K/mm3 (4.0-10.0)
[2017-05-20 06:52] VITALS: BP_SYST 114; BP_SYST 121; BP_DIAS 70; BP_DIAS 75; BP_DIAS 81
[2017-05-20 06:56] LABS: ALBUMIN 2.3 GM/DL (3.2-5.2); ALBUMIN/GLOBULIN RATIO 0.82 (1.00-1.93); ALKALINE PHOSPHATASE 70 U/L (45-117); ALT/SGPT 38 U/L (12-78); ANION GAP 8 MEQ/L (8-16); AST/SGOT 48 U/L (15-37); BILIRUBIN,TOTAL 0.7 MG/DL (0.2-1.0); BLOOD UREA NITROGEN 9 MG/DL (7-18); CALCIUM LEVEL 7.7 MG/DL (8.8-10.2); CARBON DIOXIDE LEVEL 28 MEQ/L (21-32); CHLORIDE LEVEL 109 MEQ/L (98-107); CREATININE FOR GFR 0.59 MG/DL (0.55-1.02); GLOMERULAR FILTRATION RATE > 60.0 (>39); GLUCOSE, FASTING 84 MG/DL (83-110); POTASSIUM SERUM 3.5 MEQ/L (3.5-5.1); SODIUM LEVEL 145 MEQ/L (136-145); TOTAL PROTEIN 5.1 GM/DL (6.4-8.2)
--- NOTE | 2017-05-20 06:56 | EEG ---
DATE OF PROCEDURE: 05/18/2017 REFERRING PHYSICIAN: Dr. Carlita Hadley DIAGNOSIS: Altered mental status. EEG NUMBER: [id number]. HISTORY: Patient is a 81-year-old woman who was admitted at [facility] with anemia. She has history of delirium with underlying dementia. She is currently on thiamine, Haldol, folic acid, vitamin B12, Lipitor, aspirin, etc. TECHNICAL DESCRIPTION: This digital EEG was recorded by 21 scalp, ear and two EKG electrodes and was reviewed in bipolar and referential montages following reformatting 10-20 international electrode placement system. INTERPRETATION: Patient was noted to be in awake and drowsy states during this EEG. Resting awake background rhythm consisted of 9 Hz alpha activity measuring 15-40 microvolts in amplitude. Attenuation of posterior dominant was seen during transition into drowsiness. No sleep was achieved. Hyperventilation could not be performed. Photic stimulation remained unremarkable. EKG revealed normal sinus rhythm. Intermittent bilateral temporal theta slowing was noted. No epileptiform abnormalities were seen. CONCLUSION: This EEG in awake and drowsy states is mildly abnormal to presence of mild bilateral temporal intermittent theta slowing consistent with mild diffuse nonspecific cerebral dysfunction such as seen in encephalopathy and dementia due to multiple potential causes. No clear epileptiform abnormalities were seen. Clinical correlation is recommended.
[2017-05-20] MEDS: ENOXAPARIN 30 MG/0.3 ML SYR (J1650) SC SCH (09:00)
[2017-05-20 09:30] VITALS: BP_SYST 120; BP_SYST 133; BP_SYST 134; BP_DIAS 70; BP_DIAS 71; BP_DIAS 74; BP_DIAS 81
[2017-05-20] MEDS: SENOKOT S TAB PO SCH ×2 (09:52→21:00)
[2017-05-20] MEDS: THIAMINE 100 MG TAB PO SCH (09:52)
[2017-05-20] MEDS: CYANOCOBALAMIN 500 MCG TAB PO SCH (09:53)
[2017-05-20] MEDS: HALOPERIDOL 2 MG TAB PO SCH ×2 (09:53→21:58)
[2017-05-20] MEDS: ASPIRIN 81 MG ENTERIC TAB PO SCH (09:53)
[2017-05-20] MEDS: CYANOCOBALAMIN 1,000 MCG/ML VIAL (J3420) IM SCH (09:54)
[2017-05-20] MEDS: FOLIC ACID 1 MG TAB PO SCH (09:58)
[2017-05-20] MEDS: FERROUS GLUCONATE 324 MG TAB PO SCH ×2 (09:59→21:57)
--- NOTE | 2017-05-20 12:44 | IPNPDOC ---
Subjective Date Seen The patient was seen on 05/20/17. Subjective Chief Complaint/HPI The patient is a 81-year-old female admitted with a reason for visit of Altered Mental Status. Events since last encounter More oriented and cooperative , does not offer complaints. no fever or chills, no chest pain or sob , no abdominal pain , nausea or vomiting or diarrhea. Objective Physical Examination General Exam: Positive: Alert, Cooperative, No Acute Distress Eye Exam: Positive: PERRLA, Conjunctiva & lids normal, EOMI, Negative: Sclera icteric ENT Exam: Positive: Atraumatic, Mucous membr. moist/pink, Pharynx Normal Neck Exam: Positive: Supple, Negative: JVD, thyromegaly Chest Exam: Positive: Clear to auscultation, Normal air movement Heart Exam: Positive: Rate Normal, Regular Rhythm, Normal S1, Normal S2, Negative: Murmurs, Rubs Abdomen Exam: Positive: Normal bowel sounds, Soft, Negative: Tenderness, Hepatospenomegaly Extremity Exam: Positive: Normal pulses, Negative: Clubbing, Cyanosis, Edema Assessment /Plan Problems (1) Anemia Status: Acute Problem Text: profound anemia with tachycardia and hypotension No signs of bleeding , no signs of hemolysis. Patient probably has chronic anemia the initial high value was probably due to underlying dehydration Has severe Vit b 12 deficiency started on v b12 im . also has mild iron deficiency will start on po iron also. received 3 units of prbc (2) Acute delirium Status: Resolved Problem Text: possibly hospitalization change of place , poor sleep on the back ground of dementia. on haldol 2 mg po bid (3) Acute metabolic encephalopathy Status: Acute Response to Treatment: Improving Problem Text: possibly due to severe anemia though she has underlying dementia with poor short term memory so her history is not very reliable. (4) Dementia Status: Chronic Problem Text: Probably has multiinfarct and age related dementia. Has lacuner infarcts and encephalomalacia in ct head. patient lives alone in an apartment in [facility] . May not be safe to go on living alone at this point pfs has been consulted to help with discharge planning. (5) Dehydration Status: Resolved (6) Hypertension Status: Chronic (7) Fall with injury Status: Acute Problem Text: with clavicle fracture on the right non displaced. 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 Plan/VTE VTE Prophylaxis Ordered?: Yes VS, I&O, 24H, Fishbone Vital Signs/I&O Vital Signs Date Time Temp Pulse Resp B/P (MAP) Pulse Ox O2 Delivery O2 Flow Rate FiO2 05/20/17 09:30 97.9 16 81 120/70 (87) 97 Room Air I&O- Last 24 Hours up to 6 AM 05/20/17 06:00 Intake Total 340 ml Output Total 150 ml Balance 190 ml Laboratory Data 24H LABS Laboratory Tests 2 05/20/17 06:15: Anion Gap 8, Glomerular Filtration Rate > 60.0, Blood Urea Nitrogen 9, Creatinine 0.59, Sodium Level 145, Potassium Level 3.5, Chloride Level 109H, Carbon Dioxide Level 28, Calcium Level 7.7L, Aspartate Amino Transf (AST/SGOT) 48H, Alanine Aminotransferase (ALT/SGPT) 38, Alkaline Phosphatase 70, Total Bilirubin 0.7, Total Protein 5.1L, Albumin 2.3L, Magnesium Level 2.0, Albumin/ Globulin Ratio 0.82L CBC/BMP Laboratory Tests 05/20/17 06:15 Red Blood Count 3.12 L, Mean Corpuscular Volume 92.8, Mean Corpuscular Hemoglobin 30.7, Mean Corpuscular Hemoglobin Concent 33.1, Red Cell Distribution Width 18.7 H, Calcium Level 7.7 L, Aspartate Amino Transf (AST/SGOT ) 48 H, Alanine Aminotransferase (ALT/SGPT) 38, Alkaline Phosphatase 70, Total Bilirubin 0.7, Total Protein 5.1 L, Albumin 2.3 L Microbiology Microbiology 05/14/17 Blood Culture - Final, Complete 05/14/17 Blood Culture - Final, Complete Micrococcus Lylae 05/14/17 Urine Culture - Final, Complete DALIA REINOSO MD May 20, 2017 12:44
[2017-05-20 14:00] VITALS: BP 128/72
[2017-05-20 20:00] VITALS: BP 127/66
[2017-05-20] MEDS: ATORVASTATIN 20 MG TAB PO SCH (21:58)
[2017-05-20 22:00] VITALS: BP 127/66
[2017-05-21 06:00] VITALS: BP 127/64
[2017-05-21 06:40] LABS: MEAN CORPUSCULAR HEMOGLOBIN 30.3 pg (27.0-33.0); MEAN CORPUSCULAR HGB CONC 32.1 g/dl (32.0-36.5); MEAN CORPUSCULAR VOLUME 94.2 fl (80.0-96.0); RED CELL DISTRIBUTION WIDTH 18.7 % (11.5-14.5); WHITE BLOOD COUNT 7.7 K/mm3 (4.0-10.0)
[2017-05-21 06:58] LABS: ALBUMIN 2.3 GM/DL (3.2-5.2); ALBUMIN/GLOBULIN RATIO 0.82 (1.00-1.93); ALKALINE PHOSPHATASE 83 U/L (45-117); ALT/SGPT 34 U/L (12-78); ANION GAP 9 MEQ/L (8-16); AST/SGOT 37 U/L (15-37); BILIRUBIN,TOTAL 0.5 MG/DL (0.2-1.0); BLOOD UREA NITROGEN 8 MG/DL (7-18); CALCIUM LEVEL 7.9 MG/DL (8.8-10.2); CARBON DIOXIDE LEVEL 27 MEQ/L (21-32); CHLORIDE LEVEL 108 MEQ/L (98-107); CREATININE FOR GFR 0.56 MG/DL (0.55-1.02); GLOMERULAR FILTRATION RATE > 60.0 (>39); GLUCOSE, FASTING 87 MG/DL (83-110); POTASSIUM SERUM 3.7 MEQ/L (3.5-5.1); SODIUM LEVEL 144 MEQ/L (136-145); TOTAL PROTEIN 5.1 GM/DL (6.4-8.2)
[2017-05-21] MEDS: CYANOCOBALAMIN 500 MCG TAB PO SCH (10:00)
[2017-05-21] MEDS: FERROUS GLUCONATE 324 MG TAB PO SCH (10:01)
[2017-05-21] MEDS: THIAMINE 100 MG TAB PO SCH (10:01)
[2017-05-21] MEDS: FOLIC ACID 1 MG TAB PO SCH (10:01)
[2017-05-21] MEDS: ASPIRIN 81 MG ENTERIC TAB PO SCH (10:01)
[2017-05-21] MEDS: ENOXAPARIN 30 MG/0.3 ML SYR (J1650) SC SCH (10:02)
[2017-05-21] MEDS: HALOPERIDOL 2 MG TAB PO SCH (10:02)
[2017-05-21] MEDS: SENOKOT S TAB PO SCH (10:02)
[2017-05-21] MEDS ORDERED: FERR32TA PO (11:11)
[2017-05-21] MEDS ORDERED: ASPI81TAEC PO (11:11)
[2017-05-21] MEDS ORDERED: FOLI1TAB4 PO (11:11)
[2017-05-21] MEDS ORDERED: THIA100TA PO (11:11)
[2017-05-21] MEDS ORDERED: VITA500T53 PO (11:11)
[2017-05-21] MEDS ORDERED: SENN1TAB2 PO (11:11)
[2017-05-21] MEDS ORDERED: ATOR1TAB21 PO (11:11)
[2017-05-21] MEDS ORDERED: HALO0.5H PO (14:00)
--- NOTE | 2017-05-25 19:26 | DSES ---
DATE OF ADMISSION: 05/14/2017 DATE OF DISCHARGE: 05/21/2017 PRIMARY CARE PROVIDER: Dr. Cedillo DISCHARGE DIAGNOSIS: 1. Acute on chronic anemia profound with a hemoglobin of 4.8 due to severe vitamin B12 deficiency and iron deficiency. 2. Acute delirium. 3. Dementia 4. Acute metabolic encephalopathy due to severe anemia. 5. Dehydration. 6. Hypertension. 7. Fallen injury with right clavicular fracture, nondisplaced. 8. 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 9. History of poliomyelitis 10. Acute kidney injury resolved. 11. Symptomatic bacteria and possible colonization. DISCHARGE MEDICATIONS: - aspirin 81 mg daily - atorvastatin 20 mg daily - cyanocobalamin 500 mcg by mouth daily - ferrous gluconate 324 mg by mouth twice a day - folic acid 1 mg by mouth daily - allopurinol 0.5 mg as directed - senna plus one tablet by mouth twice a day - thiamine 100 mg by mouth daily - cholecalciferol one daily HOSPITAL COURSE: This is a 81-year-old female who was sent to the emergency room from primary care's office for fall and right shoulder pain. The patient was found to have right nondisplaced clavicular fracture. The patient was very confused in the hospital and unable to give her past medical history. Her history was very inconsistent and change from provider to provider. However, she did say that she tripped and fell on her dog and hurt her shoulder. In the emergency room, she was found to leukocytosis, lactic acidosis and acute kidney injury. She was also noted to have a dirty UA. The patient was admitted for acute delirium with possible underlying dementia, clavicular fracture, dehydration and acute kidney injury. While in the hospital, her hemoglobin and hematocrit dropped to 4.8 on day 3 of admission. The patient did not have any overt bleeding from anywhere. The patient did get some hydration for the first 24 hours. So, it was felt the patient possibly has chronic anemia and was extremely dehydrated when she came in given a falsely elevated hemoglobin level. The patient received 4 units of packed red blood cell transfusion. She was also worked up for anemia and was found to have profound B12 deficiency, as well as iron deficiency. The patient was started on intramuscular (IM) vitamin B12 and by mouth iron in the hospital. After blood transfusion, the patient's hemoglobin and hematocrit remained stable. The patient's acute delirium was treated with haloperidol with improvement. The patient did continue to show features of very poor short-term memory. So, it was concluded the patient has significant underlying dementia. Significant underlying vascular dementia. The patient also underwent an electroencephalogram (EEG) in the hospital was mildly abnormal. There was presence of mild bilateral temporal intermittent theta slowing consistent with mild diffuse nonspecific cerebral dysfunction such as seen in encephalopathy and dementia due to multiple potential causes. There was no clear epileptiform abnormalities. After correction of her anemia and her mental status improved significantly. Also with the help of blood transfusion and haloperidol, her delirium cleared and she was found to be alert and oriented to time, place and person and it was felt she was able to make decisions regarding her advanced directives. I spoke to her daughter, who is in [place] over the phone and her daughter will be coming in June to take her to [place] to live close to her. The patient lives alone in an apartment complex in [place]. [facility] ([facility]) was consulted to help us plan her discharge. She was visited by a friend from [place], who is also an EMT and we spoke with her friend. She along with another EMT were agreeable to look after her and check on her frequently during the day and make sure she is taking her medications and she is able to do her activities of daily living. They were agreeable to provide daily supervision to the patient and close followup. At this point, it was felt that it was safe to let the patient go home with home services and help from the community and it was felt she would be able to manage by herself for this period of time until her daughter comes to take her to [place] in June. On the day of discharge, the patient was alert, oriented to place, time and person. Vitals were stable and she did not offer any complaints. She was felt to be functional at baseline. During the hospitalization, the patient's blood pressure was initially low and then continued to be in normal level. So, the patient's blood pressure medications were discontinued. PHYSICAL EXAMINATION: VITAL SIGNS: Temperature 97.8, pulse 71, respiratory rate 18, blood pressure 127/64, pulse oximetry 96% on room air. GENERAL: The patient awake, alert, oriented times three, sitting up in chair in no acute distress. HEENT: Normocephalic, atraumatic. Moist mucous membranes. Anicteric eyes. CHEST: Clear to auscultation. CARDIOVASCULAR: S1, S2 regular. ABDOMEN: Soft, nontender. Bowel sounds present. EXTREMITIES: No edema. LABORATORY DATA: White blood count (WBC) 7.7, hemoglobin 9.6, platelets 318. Sodium 144, potassium 3.7, chloride 108, bicarbonate 27, BUN 8, creatine 0.5. G 87, calcium 7.9, magnesium 2. Liver function tests are normal. Albumin 2.3. Vitamin B12 178. Folic acid 6.6. Vitamin D 36.5. Thyroid simulating hormone (TSH) 1.77. Ferritin 22. Transferrin saturation 12.7. Iron 40. Syphilis serology nonreactive. Urinalysis showed 43 white blood cells (WBCs), 3 leukocyte esterase, 1+ blood. Urine bacteria 2+. Urine culture no growth. Blood culture one of two bottles positive for micrococcus lylae, which was thought to be a skin contaminate. Second bottle of blood culture was negative. CT scan of the head showed old left basal ganglia lacunar infarcts, small vessel ischemic disease, bifrontal lobe encephalomalacia, mild volume loss. Cervical spine CT shows cervical spondylosis at C2-C3 to C7-T1 levels. There was minimal narrowing of the spinal canal and minimal to moderate narrowing of the neural foramina. Abdominal and pelvic CT showed 1.5 cm right renal cyst. Diverticulosis without any acute diverticulitis. Evidence of prior granulomatous disease. Renal ultrasound was normal. Right kidney 9 cm, left kidney 10.1 cm. Shoulder x-ray showed nondisplaced fracture of the distal clavicle and the acromioclavicular joint. Chest x-ray did not show any acute cardiopulmonary process. DISPOSITION: The patient is discharged home with home services and community help set up. DISCHARGE INSTRUCTIONS: The patient to followup with primary care provider in one to two weeks' time. Regular diet. Activity as tolerated.
== END 2017-05-21 13:25 | disposition home health service (06) | DRG 562 ==
LOC: M ED 12:42 → M ED INP 21:23 → M MSPAV 05-15 12:35 → M ICU 05-17 09:17 → M PCU 05-17 20:46 → M MSPAV 05-19 02:00
PROVIDERS: ADMIT Hospitalist; ATTEND Internal Medicine Nephrology
PROC: 30253N1 (ICD-10-PCS; principal; 2017-05-17)
DX: S42.031A Displaced fracture of lateral end of right clavicle, initial encounter for closed fracture (principal); G93.41 Metabolic encephalopathy; N17.9 Acute kidney failure, unspecified; E87.2 Acidosis; F01.51 Vascular dementia, unspecified severity, with behavioral disturbance; I10 Essential (primary) hypertension; R00.0 Tachycardia, unspecified; G93.89 Other specified disorders of brain; D53.9 Nutritional anemia, unspecified; D50.9 Iron deficiency anemia, unspecified; E86.0 Dehydration; D72.829 Elevated white blood cell count, unspecified; W01.0XXA Fall on same level from slipping, tripping and stumbling without subsequent striking against object, initial encounter; Y92.009 Unspecified place in unspecified non-institutional (private) residence as the place of occurrence of the external cause; Y99.8 Other external cause status; Z86.12 Personal history of poliomyelitis; Z87.891 Personal history of nicotine dependence; Z79.899 Other long term (current) drug therapy

== ENCOUNTER → 2017-05-14 | Outpatient (CLI) | payer MEDICARE | LOC: M CLY 10:52 | PROVIDERS: ATTEND Family Medicine | DX: Z53.8 Procedure and treatment not carried out for other reasons (principal) ==